=== PATIENT | female | born 1970 | race Caucasian/White ===

== ENCOUNTER 2018-06-08 02:32 | Emergency (ER) | payer OTHER ==
[~2018-06-08] VITALS: Ht 162.6 cm; Wt 68.0 kg
[~2018-06-08 02:32] MED LIST: ADDERALL; ADDERALL 10 MG10 MG PO; ALPRAZOLAM; AMBIEN 5 MG TABL5 M1 PO; BACTRIM DS TAB1 EACH PO; BUPROPION; CIPROFLOXACIN500 M1 PO; CLARITIN10 MG; COMPAZINE25 MG RECTAL; COMPAZINE5 M1 PO; IBUPROFEN 800800 M1 PO; METFORMIN; MUCINEX600 MG; NAPROSYN500 MG PO; NORCO 5-325 TA1 EACH PO; PHENERGAN 25 MG25 M1 PO; TYLENOL COLD &240 ML; VICODIN 5-3001 EACH PO
[2018-06-08] MEDS ORDERED: XANAX1 MG PO (02:47)
[2018-06-08 03:25] VITALS: BP 104/66
== END 2018-06-08 03:25 | disposition home or self-care (01) ==
LOC: M.ERS 02:32
DX: S01.81XA Laceration without foreign body of other part of head, initial encounter (principal); J45.909 Unspecified asthma, uncomplicated; F41.9 Anxiety disorder, unspecified; F32.9 Major depressive disorder, single episode, unspecified; Z87.442 Personal history of urinary calculi; Z98.890 Other specified postprocedural states; Z91.041 Radiographic dye allergy status; Z88.1 Allergy status to other antibiotic agents; W06.XXXA Fall from bed, initial encounter; Y93.89 Activity, other specified; Y92.89 Other specified places as the place of occurrence of the external cause; Y99.8 Other external cause status

== ENCOUNTER 2018-08-09 08:59 | Emergency (ER) | payer OTHER, MEDICAID ==
[~2018-08-09] VITALS: Ht 152.4 cm; Wt 67.1 kg
[~2018-08-09 08:59] MED LIST changes: -BUPROPION; +WELLBUTRIN 100100 MG PO; +XANAX1 MG PO
[2018-08-09 09:44] LABS: ABSOLUTE BASOPHILS 0.1 thou/uL (0.0-0.2); ABSOLUTE EOSINOPHILS 0.1 thou/uL (0.0-0.7); ABSOLUTE LYMPHOCYTES 1.8 thou/uL (0.8-5.3); ABSOLUTE MONOCYTES 0.6 thou/uL (0.0-1.2); EOSINOPHILS 1.3 %; HEMATOCRIT 36.6 % (37.0-47.0); HEMOGLOBIN 12.2 gm/dL (12.0-15.0); MCH 29.9 pg (26.0-34.0); MCHC 33.3 g/dL (28.0-37.0); MCV 89.9 fL (80.0-100.0); MONOCYTES 8.7 %; MPV 8.4 fl. (7.2-11.1); NUCLEATED RBCS 0 /100WBC; PLATELET COUNT* 259 thou/uL (150-400); RBC 4.07 mil/uL (4.20-5.00); RDW-CV 13.5 % (10.5-14.5); WBC 6.6 thou/uL (4.0-11.0)
[2018-08-09 09:52] LABS: CALCIUM 8.8 mg/dL (8.5-10.1); CREATININE 1.3 mg/dL (0.6-1.3); POTASSIUM 4.1 mmol/L (3.5-5.1)
[2018-08-09 09:57] LABS: ALBUMIN 3.5 g/dL (3.4-5.0); TOTAL BILIRUBIN 0.3 mg/dL (<0.1-1.0); TOTAL PROTEIN 6.8 g/dL (6.4-8.2)
[2018-08-09 10:10] LABS: URINE BILIRUBIN NEGATIVE (Negative); URINE BLOOD 1+ (Negative); URINE CLARITY SL CLOUDY; URINE COLOR YELLOW; URINE GLUCOSE-RANDOM NEGATIVE (Negative); URINE KETONES NEGATIVE (Negative); URINE LEUKOCYTES-REFLEX 1+ (Negative); URINE PROTEIN NEGATIVE (Negative); URINE UROBILINOGEN 0.2 E.U./dl (0.2-1.0)
[2018-08-09 10:11] LABS: URINE NITRITE-REFLEX POSITIVE (Negative)
[2018-08-09 10:25] LABS: BACTERIA-REFLEX >30 Many /HPF (None Seen); SQUAMOUS 4-10 Moderate /LPF (0-3); URINE RBC 0-2 Rare /HPF (0-2); URINE WBC-REFLEX 6-15 Few /HPF (0-5)
[2018-08-09 10:26] LABS: CRYSTALS None Seen /LPF (None Seen); HYALINE CASTS 0-3 Few /LPF (None Seen); MUCUS 4-6 Moderate strn/LPF (None Seen)
[2018-08-09] MEDS ORDERED: DIFLUCAN150 MG PO (11:39)
[2018-08-09] MEDS ORDERED: FLOMAX0.4 MG PO (11:39)
[2018-08-09] MEDS ORDERED: TORADOL 10 MG T10 MG PO (11:39)
[2018-08-09] MEDS ORDERED: BACTRIM DS TAB1 EACH PO (11:39)
[2018-08-09 11:54] VITALS: BP 89/52
== END 2018-08-09 11:55 | disposition home or self-care (01) ==
LOC: M.ERS 08:59
PROVIDERS: Personal Emergency Response Attendant
DX: N20.1 Calculus of ureter (principal); J45.909 Unspecified asthma, uncomplicated; F41.9 Anxiety disorder, unspecified; F32.9 Major depressive disorder, single episode, unspecified; Z98.890 Other specified postprocedural states; Z88.8 Allergy status to other drugs, medicaments and biological substances

== ENCOUNTER 2018-08-11 18:26 | Inpatient (IN) | payer OTHER, MEDICAID ==
[~2018-08-11] VITALS: Ht 152.4 cm; Wt 67.1 kg
--- NOTE | ~2018-08-11 | OP ---
[facility] [address] [place] [address] OPERATIVE REPORT Name: CLEO GANNON Room: [address] IN M.R.#: [id number] Admission: 08/11/18 Attend Phys: Elias Amado MD Discharge: Date of : 66 Report #: [id number] THIS REPORT FOR: //name// CC: [facility] DATE OF SERV[facility]: 08/12/2018 PREOPERATIVE DIAGNOSES: Right distal ureteral obstructing stone, urinary tract infection and left flank pain. POSTOPERATIVE DIAGNOSES: Right distal ureteral obstructing stone, urinary tract infection and left flank pain. PROCEDURE: Cystourethroscopy, bilateral retrograde pyelograms and right ureteral stent placement (6-Dominican x 26 cm). SURGEON: Samantha Corona M.D. ANESTHESIA: General. ESTIMATED BLOOD LOSS: None. COMPLICATIONS: None. SPECIMENS: Urine from right kidney for culture and sensitivity. INDICATIONS FOR PROCEDURE: The patient is a 48-year-old female who has a history of recurrent nephrolithiasis. She usually follows with Dr. Rosario. She has been dealing with recurrent UTIs since around that have not cleared. She presented to [employer] [facility] on 08/09/[address] showed a 5 mm right distal ureteral obstructing stone. She presented back with intractable pain and urine was noted to be infected. Her urine culture from 08/09/2018 is growing E. coli with multiple resistances. Infectious Disease has been consulted. She has been afebrile, but given the presence of infection, it was recommended she undergo cystoscopy and right stent placement. She also was complaining of some left-sided flank pain in the preoperative area. She does have some tiny stones on the left side, so we discussed doing a left retrograde pyelogram as well with possibility of stent on that side if she is hydro and she verbally gave consent for that. Risks of procedure were discussed including but not limited to infection, bleeding, injury to the urethra, bladder, ureter, need for secondary procedures, stent pain, cardiopulmonary complications. She voiced understanding. She also understands that she will need definitive stone treatment once the she is clear of her infection and she wishes to proceed with that through our office instead of [place] [address] OPERATIVE REPORT Name: CLEO GANNON Room: [address] IN [facility].#: [id number] Admission: 08/11/18 Attend Phys: Elias Amado MD Discharge: Date of : 66 Report #: [id number] DESCRIPTION OF PROCEDURE: After informed consent was obtained, the patient was taken to the operating suite and placed supine. After induction of general anesthesia, she was placed in dorsal lithotomy position, genitalia prepped and draped in standard fashion. Rigid cystoscopy was performed. She was noted to have a mild to moderate cystocele. 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 Otherwise, there were no mucosal lesions or tumors. Her ureteral orifices were orthotopic in position. I first threaded a sensor wire up into the right kidney. The proximal ureter had some tortuosity, so a 5-Dominican open-ended catheter was threaded over the wire and up into the kidney. Wire was removed and a hydronephrotic drip was appreciated. This did not appear purulent. A 10 mL of urine was aspirated and sent for culture from the kidney. This did not appear purulent, but was pretty clear. Prior to replacing the wire, retrograde was performed and this revealed severe right hydroureteronephrosis with significant tortuosity of the proximal ureter. The wire was replaced. I threaded a 6-Dominican x 24 cm double-J stent over the wire; however, this appeared short as the proximal curl kept falling into the capacious UPJ/proximal ureter area. Therefore, a wire was replaced and instead a 6-Dominican x 26 cm double-J stent was threaded over the wire and at this time, good curl seemed to hold in the renal pelvis and good curl was seen within the bladder under direct vision. Contrast was seen effluxing from the stent after placement and there was no purulence. The attention was turned to the left side. Retrograde was performed with the Pollack catheter. This revealed a normal delicate ureter and collecting system without hydronephrosis or filling defects. Therefore, this was left alone. The bladder was then drained and the scope was removed. A 5 mL of lidocaine jelly were placed per urethra for local anesthesia. A 60 mg B and O suppository was placed per rectum for postoperative comfort. She was awoken, extubated and taken to recovery in satisfactory condition. She will be admitted back to the floor on IV antibiotics, await Infectious Disease consultation. She will need full course of antibiotic therapy and a preoperative negative urine culture before we proceed with stone intervention in the future. By: [id number] Corona MD /miranda
[~2018-08-11 18:26] MED LIST changes: +DIFLUCAN150 MG PO; +FLOMAX0.4 MG PO; +TORADOL 10 MG T10 MG PO
[2018-08-11] MEDS ORDERED: IBUPROFEN 800800 M1 PO (18:45)
[2018-08-11 19:05] LABS: ABSOLUTE EOSINOPHILS 0.1 thou/uL (0.0-0.7); ABSOLUTE LYMPHOCYTES 0.9 thou/uL (0.8-5.3); ABSOLUTE MONOCYTES 0.5 thou/uL (0.0-1.2); ABSOLUTE NEUTROPHILS 5.4 thou/uL (1.6-8.1); BASOPHILS 0.5 %; HEMATOCRIT 34.8 % (37.0-47.0); HEMOGLOBIN 11.6 gm/dL (12.0-15.0); LYMPHOCYTES 12.8 %; MCH 30.4 pg (26.0-34.0); MCHC 33.4 g/dL (28.0-37.0); MCV 90.9 fL (80.0-100.0); MONOCYTES 7.7 %; MPV 8.9 fl. (7.2-11.1); NUCLEATED RBCS 0 /100WBC; PLATELET COUNT* 186 thou/uL (150-400); RBC 3.82 mil/uL (4.20-5.00); RDW-CV 13.3 % (10.5-14.5)
[2018-08-11 19:13] LABS: CREATININE 1.2 mg/dL (0.6-1.3); POTASSIUM 4.1 mmol/L (3.5-5.1)
[2018-08-11 19:17] LABS: ALBUMIN 3.3 g/dL (3.4-5.0); TOTAL BILIRUBIN 0.3 mg/dL (<0.1-1.0); TOTAL PROTEIN 6.4 g/dL (6.4-8.2)
[2018-08-11 19:50] LABS: URINE BILIRUBIN NEGATIVE (Negative); URINE BLOOD 1+ (Negative); URINE CLARITY CLEAR; URINE COLOR YELLOW; URINE GLUCOSE-RANDOM NEGATIVE (Negative); URINE KETONES NEGATIVE (Negative); URINE PROTEIN NEGATIVE (Negative); URINE SPECIFIC GRAVITY 1.025 (1.005-1.030); URINE UROBILINOGEN 0.2 E.U./dl (0.2-1.0)
[2018-08-11 19:54] LABS: URINE LEUKOCYTES-REFLEX 3+ (Negative); URINE NITRITE-REFLEX POSITIVE (Negative)
[2018-08-11 19:58] LABS: SQUAMOUS NONE SEEN /LPF (0-3)
[2018-08-11 19:59] LABS: BACTERIA-REFLEX >30 Many /HPF (None Seen); CASTS None Seen /LPF (None Seen); CRYSTALS None Seen /LPF (None Seen); URINE RBC 0-2 Rare /HPF (0-2); URINE WBC-REFLEX 6-15 Few /HPF (0-5)
[2018-08-11 21:16] VITALS: BP 117/72
[2018-08-11 21:22] VITALS: BP 135/77
--- NOTE | 2018-08-12 04:41 | NUR ---
PT ARRIVED ON UNIT FROM ER VIA STRETCHER ASSISTED TO ROOM ORIENTED TO SURROUNDINGS, VS AND ASSESSMENT STABLE. PT HAD PAIN AND NAUSEA MEDS TWICE OVERNIGHT THEN SLEPT WILL CONTINUE PLAN OF CARE.
[2018-08-12 07:50] VITALS: BP 128/62
[2018-08-12 08:16] VITALS: BP 135/77
--- NOTE | 2018-08-12 09:40 | NUR ---
PATIENT LEFT UNIT AT 0940 FOR SURGERY. SURGERY TIME CHANGED TO AROUND 1500 TODAY. PATIENT STAYING IN PACU UNTIL SCHEDULED SURGERY TIME.
[2018-08-12 10:12] VITALS: BP 122/67
--- NOTE | 2018-08-12 17:06 | NUR ---
PATIENT RETURNED FROM SURGERY AT THIS TIME. ALERT AND ORIENTED. DENIES PAIN. TOLERATING CRACKERS/LIQUIDS. IV ANTIBIOTIC STARTED. STRAINING ALL URINE.SCD'S IN PLACE.DENIES NEEDS. CALL LIGHT WITHIN REACH. WILL CONTINUE TO MONITOR.
[2018-08-12 17:20] VITALS: BP 117/75
[2018-08-12 20:00] VITALS: BP 120/72
--- NOTE | 2018-08-13 05:24 | NUR ---
PT REMAINED A&Ox4 THROUGHOUT SHIFT. UP AD ROHIT. VITALS STABLE. IV IN L FA PATENT, SL. RATED PAIN 2-3 DURING SHIFT, DENIED PAIN MEDS. DID HAVE PAINFUL URINATION, PYRIDUM GIVEN AND RELIEVED PAIN. URINE STRAINED, NO STONES FOUND. HOURLY ROUNDING COMPLETE. CALL LIGHT WITHIN REACH. WILL CONTINUE TO MONITOR.
[2018-08-13] MEDS ORDERED: BACTRIM DS TAB1 EACH PO (09:31)
[2018-08-13] MEDS ORDERED: CIPRO500 MG PO (10:01)
[2018-08-13 10:56] VITALS: BP 118/79
[2018-08-13 11:07] VITALS: BP 118/79
[2018-08-13] MEDS ORDERED: LEVSIN0.125 MG PO (11:24)
[2018-08-13] MEDS ORDERED: HYDROCODON-ACE1 EAC7 PO (11:24)
[2018-08-13] MEDS ORDERED: PHENAZOPYRIDIN200 M2 PO (11:26)
[2018-08-13 11:48] VITALS: BP 118/79
--- NOTE | 2018-08-13 11:49 | NUR ---
PATIENT LEFT UNIT BY WHEELCHAIR WITH NURSING STAFF AT 1150. IV DC'D. EDUCATED PATIENT ON DISCHARGE INSTRUCTIONS AND NEW MED SCRIPTS. PATIENT VERBALIZED UNDERSTANDING. ALL BELONGINGS LEFT WITH PATIENT
--- NOTE | 2018-08-13 12:24 | CON ---
[address] [address] CONSULTATION Name: CLEO GANNON Room: [address] IN M.R.#: [id number] Admission: 08/11/18 Attend Phys: Elias Amado MD Discharge: 08/13/18 Date of : 66 Report #: [id number] THIS REPORT FOR: //name// [facility] DATE OF SERVICE: 08/12/2018 INFECTIOUS DISEASE CONSULTATION ATTENDING PHYSICIAN: Elias Amado M.D. REASON FOR EVALUATION: Obstructive uropathy secondary to a distal right ureteral stone complicated by pyelonephritis and early sepsis. HISTORY OF PRESENT ILLNESS: Chart reviewed, patient examined. This is a 48-year-old woman with known history of renal stone disease presented to the emergency room with complaints of bilateral flank pain, right side was worse than the left, radiating to the lower quadrant. This is similar to her previous episodes of obstructive uropathy, often requires surgical intervention. She was admitted. It is not clear if she has had fevers or chills. She experienced some degree of nausea with anorexia. No chest related complaints. She underwent evaluation CT, which confirmed 5 mm calculus at the level of the distal right ureter proximal to the right ureterovesicular junction with moderate right hydronephrosis and hydroureter. Previous urine culture from 08/09/2018 showed 5 times 10 to the fourth to 10 to the fifth Escherichia coli that was somewhat multiple resistant including early generation penicillins, cephalosporins, quinolone resistance as well as Bactrim resistance. It is notable she had been treated as an outpatient with Cipro, Bactrim without benefit. She was started empirically on Zosyn, which is consistent with the susceptibility testing in terms of sensitivity. She is to undergo operative intervention with stenting. At this point, she denies significant pulmonary related complaints. She is seen in the preoperative area. She is lucid. ALLERGIES: LISTED TO CEFAZOLIN, CEPHRADINE, CONTRAST DYE. CURRENT MEDICATIONS: Include zolpidem, tamsulosin, Bactrim, alprazolam, Zosyn, ondansetron, fluconazole. PAST MEDICAL HISTORY: As described above, history of asthma, anxiety, depression, previous , cholecystectomy. She has had previous renal stent. SOCIAL HISTORY: Nonsmoker. Occasional ethanol, no illicit drug use. FAMILY HISTORY: [place] [address] CONSULTATION Name: CLEO GANNON FERNANDO Room: [address]#: [id number] Admission: 08/11/18 Attend Phys: Elias Amado MD Discharge: 08/13/18 Date of : 66 Report #: [id number] REVIEW OF SYSTEMS: Otherwise, unremarkable 10-point review of systems unless otherwise noted in the history of present illness. PHYSICAL EXAMINATION: GENERAL: She is alert, cooperative, in mild to moderate distress secondary to the flank pain, appears to be generally well nourished. She is lucid. VITAL SIGNS: Temperature 98.4, pulse 84, respirations 16, blood pressure 122/67. SKIN: Warm, dry, no rashes. HEENT: Extraocular muscles intact. Oropharynx, mucous membranes are moist. NECK: Supple. LUNGS: Clear to auscultation. HEART: Regular. I do not appreciate any murmur. ABDOMEN: Soft. There is some tenderness on the right side. There are no overt peritoneal signs. EXTREMITIES: Distal lower extremities without significant edema. GENITOURINARY: Deferred. RECTAL: Deferred. LABORATORY DATA: HCG quantitative was less than 6 with negative . Urinalysis 6-15 white cells, greater than 30 bacteria. Urine culture from 08/09/2018, Escherichia coli. Electrolytes: Sodium 145 back on 08/09/2018, potassium 4.1, chloride 109, bicarbonate is 29, BUN and creatinine 23 and 1.3. LFTs unremarkable. Albumin of 3.5. Total protein 6.8. CBC: White count 7.0, H and H 11.6 and 34.8, platelets of 186. ASSESSMENT: Complicated urinary tract infection with a component of obstructive uropathy, distal ureteral stone with recent urine culture with moderately resistant Escherichia coli. We will continue piperacillin and tazobactam given her allergies to CEPHALOSPORINS and resistance to other classes. We will discontinue the Bactrim at this point. We will see how she does clinically and we will follow postoperatively and this should give her some relief of symptoms as well as treatment of urinary tract infection. <ELECTRONICALLY SIGNED> By: Gergg Warren MD 08/13/18 1224 [id number] Warren MD /miranda
== END 2018-08-13 11:51 | disposition home or self-care (01) | DRG 660 ==
LOC: M.ERS 18:26 → M.TBA-ER 20:39 → M.ORTHSURG 20:39
PROVIDERS: Nurse Practitioner Family; ADMIT Internal Medicine
PROC: BT141ZZ Fluoroscopy of Kidneys, Ureters and Bladder using Low Osmolar Contrast (ICD-10-PCS; principal; 2018-08-12)
PROC: 0T768DZ Dilation of Right Ureter with Intraluminal Device, Via Natural or Artificial Opening Endoscopic (ICD-10-PCS; principal; 2018-08-12)
DX: N13.6 Pyonephrosis (principal); E44.0 Moderate protein-calorie malnutrition; J45.909 Unspecified asthma, uncomplicated; B96.20 Unspecified Escherichia coli [E. coli] as the cause of diseases classified elsewhere; F41.1 Generalized anxiety disorder; F32.9 Major depressive disorder, single episode, unspecified; Z87.442 Personal history of urinary calculi; Z88.8 Allergy status to other drugs, medicaments and biological substances; Z91.041 Radiographic dye allergy status; Z90.49 Acquired absence of other specified parts of digestive tract; Z84.1 Family history of disorders of kidney and ureter; Z68.28 Body mass index [BMI] 28.0-28.9, adult